=== PATIENT | female | born 1955 | race Caucasian/White ===

== ENCOUNTER 2016-04-27 07:57 | Emergency (ER) | payer OTHER ==
[2016-04-27 08:04] VITALS: TEMP 98.4; BMI 24.4
[2016-04-27] MEDS ORDERED: KETOROLAC TROMETHAMINE 30 MG/1 ML VIAL IVPUSH ONE (08:58)
[2016-04-27] MEDS ORDERED: ONDANSETRON 4 MG/2 ML VIAL IVPB ONE (08:58)
[2016-04-27] MEDS ORDERED: ONDANSETRON 4 MG/2 ML VIAL ONE (09:40)
[2016-04-27] MEDS ORDERED: KETOROLAC TROMETHAMINE 30 MG/1 ML VIAL ONE (09:40)
--- NOTE | 2016-04-27 09:47 | PDOC ---
History of Present Illness - General Chief Complaint: Pain, Acute Stated Complaint: ABD PAIN Time Seen by Provider: 04/27/16 08:40 History Source: Patient Exam Limitations: No Limitations - History of Present Illness Travel History: No Initial Comments: 04/27/16 09:37 60-year-old female presents to the ED with complaints of lower abdominal pain associated with constipation for the past 8 days. Patient states at this point she is also complaining of nausea without fever but did vomit once this morning. Patient states has history of chronic constipation is under the care of Dr. Yanez also for GERD. Patient denies dysuria, abdominal distention, rash , radiation of pain to her upper quadrants, chest pain, shortness of breath, or back pain. Patient also states history of colitis and diverticulitis but denies colon surgery. Timing/Duration: reports: constant Quality: reports: moderate, cramping Abdominal Pain Onset Location: reports: RLQ, LLQ Pain Radiation: reports: no radiation Activities at Onset: reports: none Aggravating Factors: improves with: None Alleviating Factors: improves with: None Past History - Past Medical History Allergies/Adverse Reactions: Allergies Allergy/AdvReac Type Severity Reaction Status Date / Time No Known Allergies Allergy Verified 04/27/16 07:58 Home Medications: Ambulatory Orders Gabapentin [Neurontin] 800 mg PO QID 03/31/14 Zolpidem Tartrate [Ambien] 10 mg PO HS 03/31/14 Clonazepam [Klonopin -] 0.5 mg PO DAILY 06/18/15 Venlafaxine HCl ER [Effexor Xr -] 150 mg PO BID cap.er.24h 11/03/15 Methimazole [Tapazole -] 20 mg PO Q12H 03/10/16 Methadone HCl 10 mg PO BID #60 tablet MDD 2 04/07/16 Cardiac Disorders: No Diabetes: No GI Disorders: Yes (gastris, gastric ulcers, diverticulitis, COLITIS) HTN: No Liver Disease: No Psychiatric Problems: Yes (ANXIETY) Suicide Attempt (Hx): No Seizures: Yes (? once had seizure 2005 had blood clot in brain) Thyroid Disease: Yes (hyperthyroid -multinodular) - Surgical History Abdominal Surgery: Yes Neurologic Surgery: Yes (2005 brain surgery blood clot removed after head trauma - ) - Immunization History Immunization Up to Date: Yes - Psycho/Social/Smoking Cessation Hx Anxiety: Yes Suicidal Ideation: No Smoking History: Former smoker Have you smoked in the past 12 months: No Number of Cigarettes Smoked Daily: 4 If you are a former smoker, when did you quit?: "one month ago" Information on smoking cessation initiated: No 'Breaking Loose' booklet given: 05/09/15 Hx Alcohol Use: No Drug/Substance Use Hx: No Substance Use Type: None Hx Substance Use Treatment: No Patient Lives Alone: No Lives with/in: spouse/SO Abd/GI Specific PMHX - Complaint Specific PMHX Colitis: Yes Diverticulitis: Yes GERD: Yes Review of Systems - Review of Systems Able to Perform ROS?: Yes Constitutional: No: Symptoms Reported HEENTM: No: Symptoms Reported Respiratory: No: Symptoms reported Cardiac (ROS): No: Symptoms Reported ABD/GI: Yes: Constipated, Nausea, Vomiting, Abdominal cramping : No: Symptoms Reported Musculoskeletal: No: Symptoms Reported Integumentary: No: Symptoms Reported Neurological: No: Symptoms reported *Physical Exam - Vital Signs Last Vital Signs Temp Pulse Resp BP Pulse Ox 98.4 F 57 L 18 157/90 99 04/27/16 07:59 04/27/16 07:59 04/27/16 07:59 04/27/16 07:59 04/27/16 07:59 - Physical Exam General Appearance: Yes: Nourished, Appropriately Dressed. No: Apparent Distress HEENT: negative: Pale Conjunctivae Neck: positive: Supple Respiratory/Chest: positive: Lungs Clear, Normal Breath Sounds. negative: Respiratory Distress, Accessory Muscle Use Cardiovascular: positive: Regular Rhythm, Regular Rate. negative: Murmur Gastrointestinal/Abdominal: positive: Normal Bowel Sounds, Soft, Guarding (mild left lower quadrant), Tenderness (left lower quadrant and right lower quadrant tenderness). negative: Distended, Rebound ED Treatment Course - LABORATORY CBC & Chemistry Diagram: 04/27/16 09:43 04/27/16 09:43 - RADIOLOGY Radiology Studies Ordered: Category Date Time Status ABDOMEN & PELVIS CT W/O CONTR [CT] Stat CT Scan 04/27/16 08:58 Ordered Medical Decision Making - Medical Decision Making 04/27/16 09:51 Patient with history of colitis diverticulitis GERD and constipation presents with lower abdominal pain associated with nausea vomiting and constipation. Patient was tender in the left and right lower quadrant with mild guarding without rebound or decreased bowel sounds. No palpable mass. No visible hernia. Patient ordered for labs including fluids Zofran and CT with by mouth contrast only. Will consult GI Dr. Yanez as needed 04/27/16 11:43 Laboratory Tests 04/27/16 04/27/16 04/27/16 09:43 09:43 09:43 WBC 6.5 Hgb 11.6 Hct 33.9 Neutrophils % 82.2 Sodium 134 L Potassium 3.9 Chloride 102 Carbon Dioxide 25 D Anion Gap 7 L BUN 7 Creatinine 0.5 L Creat Clearance w eGFR > 60 Random Glucose 103 Lactic Acid Calcium 8.9 Total Bilirubin 0.8 D ALT 26 Lipase 92 Urine Protein 1+ H Urine Ketones Negative Urine Nitrite Negative Ur Leukocyte Esterase Negative Urine RBC 1 Urine WBC <1 Opiates Screen Methadone Screen 04/27/16 04/27/16 09:43 09:43 WBC Hgb Hct Neutrophils % Sodium Potassium Chloride Carbon Dioxide Anion Gap BUN Creatinine Creat Clearance w eGFR Random Glucose Lactic Acid 1.295 Calcium Total Bilirubin ALT Lipase Urine Protein Urine Ketones Urine Nitrite Ur Leukocyte Esterase Urine RBC Urine WBC Opiates Screen Positive Methadone Screen Positive 04/27/16 13:44 CT shows a few diverticula in the distal descending and proximal to sigmoid colon without evidence of acute diverticulitis. Normal appearing appendix. Question of gallbladder sludge versus artifact. No CT evidence of acute process in the abdomen or pelvis. Patient will be discharged home to follow-up with her PCP. *DC/Admit/Observation/Transfer Diagnosis at time of Disposition: Lower abdominal pain - Discharge Dispostion Disposition: HOME Condition at time of disposition: Good - Referrals Referrals: Jacob Madison MD [Primary Care Provider] - Floyd Riddle MD [Staff Physician] - - Patient Instructions Printed Discharge Instructions: DI for Abdominal Pain-Adult Additional Instructions: Drink plenty of fluids and avoid spicy greasy food today. Follow-up with your PCP and/or timber killer. Return to ED if symptoms worsen.
[2016-04-27 10:00] LABS: BASOPHIL 0.6 % (0-2.0); EOSINOPHIL 0.1 % (0-4.5); MCH 30.1 pg (25.7-33.7); MCHC 34.1 g/dl (32.0-36.0); MEAN CELL VOLUME 88.2 fl (80-96); MEAN PLT VOLUME 7.7 fl (7.5-11.1); NEUTROPHILS 82.2 % (42.8-82.8); PLATELET COUNT 269 K/MM3 (134-434); RDW 15.1 % (11.6-15.6); WHITE BLOOD COUNT 6.5 K/mm3 (4.0-10.0)
[2016-04-27 10:01] LABS: URINE APPEARANCE CLEAR; URINE BILIRUBIN NEGATIVE (NEGATIVE); URINE BLOOD NEGATIVE (NEGATIVE); URINE COLOR YELLOW; URINE GLUCOSE (UA) NEGATIVE (NEGATIVE); URINE KETONE NEGATIVE (NEGATIVE); URINE LEUK ESTERASE NEGATIVE (NEGATIVE); URINE NITRITE NEGATIVE (NEGATIVE); URINE UROBILINOGEN NEGATIVE E.U./dl (0.2-1.0)
[2016-04-27 10:06] LABS: URINE PROTEIN 1+ (NEGATIVE)
[2016-04-27 10:08] LABS: URINE MUCUS FEW; URINE RBC 1 /hpf (0-3); URINE WBC <1 /hpf (3-5)
[2016-04-27 10:18] LABS: URINE MARIJUANA THC NEGATIVE ng/ml (CUTOFF=50)
[2016-04-27 10:35] LABS: ALBUMIN 3.6 g/dl (3.4-5.0); ANION GAP 7 (8-16); CALCIUM 8.9 mg/dL (8.5-10.1); CO2 25 mmol/L (21-32); CREATININE 0.5 mg/dL (0.55-1.02); GLUCOSE,RANDOM 103 mg/dL (74-106); SGOT/AST 20 U/L (15-37); SGPT/ALT 26 U/L (12-78)
[2016-04-27 10:37] LABS: ALK PHOS 98 U/L (45-117); BILIRUBIN,TOTAL 0.8 mg/dL (0.2-1.0); TOT PROT 7.6 g/dl (6.4-8.2)
[2016-04-27] MEDS ORDERED: morphine CARPU-JECT 2 MG/1 ML DISP.SYRIN IVPUSH ONE (11:54)
[2016-04-27] MEDS ORDERED: morphine CARPU-JECT 4 MG/1 ML DISP.SYRIN ONE (12:05)
[2016-04-27 14:13] VITALS: BP 153/94; PULSE 55
== END 2016-04-27 14:13 | disposition home or self-care (01) ==
LOC: JER 07:57
PROC: 3E033NZ Introduction of Analgesics, Hypnotics, Sedatives into Peripheral Vein, Percutaneous Approach (ICD-10-PCS; principal; 2016-04-27)
PROC: 3E0333Z Introduction of Anti-inflammatory into Peripheral Vein, Percutaneous Approach (ICD-10-PCS; 2016-04-27)
PROC: 3E033GC Introduction of Other Therapeutic Substance into Peripheral Vein, Percutaneous Approach (ICD-10-PCS; 2016-04-27)
DX: R10.30 Lower abdominal pain, unspecified (principal); E05.80 Other thyrotoxicosis without thyrotoxic crisis or storm; F41.9 Anxiety disorder, unspecified; Z87.19 Personal history of other diseases of the digestive system; Z86.69 Personal history of other diseases of the nervous system and sense organs
CPT/HCPCS: 36415; 74176-TC; 80053; 80307; 81003; 81015; 83605; 83690; 85025; 87086; 96374; 96375; 99282-25; Q9967

== ENCOUNTER 2018-01-24 17:21 | Emergency (ER) | payer OTHER ==
--- NOTE | 2018-01-24 18:21 | PDOC ---
History of Present Illness - General Chief Complaint: Palpitations Stated Complaint: EVALUATION Time Seen by Provider: 01/24/18 18:21 History Source: Patient Exam Limitations: No Limitations - History of Present Illness Initial Comments: 01/24/18 18:47 62 year old female sent to ED by heel top lift splitter for an event on her athletic monitor. Pt stated she did not want to be evaluated, she did not want to be treated and she wanted to go home. She states she had a cath last thursday, which was normal and she did not receive any stenting. She denies current chest pain, palpitations, shortness of breath, abdominal pain, syncope. She refused to answer any further questions. Past History - Past Medical History Allergies/Adverse Reactions: Allergies Allergy/AdvReac Type Severity Reaction Status Date / Time lorazepam [From Ativan] AdvReac Intermediate Vomiting Verified 11/06/17 08:05 Home Medications: Ambulatory Orders Zolpidem Tartrate [Ambien] 10 mg PO HS 03/31/14 clonazePAM [Klonopin -] 0.5 mg PO TID 06/18/15 Metoclopramide HCl [Reglan -] 10 mg PO BID PRN 03/20/17 Pantoprazole Sodium [Protonix -] 40 mg PO DAILY PRN 03/20/17 Bupropion HCl [Bupropion Xl] 150 mg PO DAILY 06/17/17 Levothyroxine [Synthroid -] 112 mcg PO DAILY 06/17/17 Risperidone [Risperdal] 2 mg PO DAILY 06/17/17 Gabapentin 800 mg PO QID #120 tablet 09/09/17 Hydrocodone/Acetaminophen [[place] 10-325 Tablet] 1 each PO BID PRN #60 tablet MDD 2 01/07/18 Methadone [Dolophine -] 10 mg PO Q12H #60 tablet MDD 2 01/07/18 Nystatin Cream [Mycostatin] 1 applic TP BID #1 tube 01/07/18 Cardiac Disorders: No Diabetes: No GI Disorders: Yes (gastris, gastric ulcers, diverticulitis, COLITIS) HTN: No Liver Disease: No Psychiatric Problems: Yes (ANXIETY) Seizures: Yes (? once had seizure 2005 had blood clot in brain) Thyroid Disease: Yes (hyperthyroid -multinodular) - Surgical History Abdominal Surgery: Yes Neurologic Surgery: Yes (2005 brain surgery blood clot removed after head trauma - ) - Immunization History Immunization Up to Date: Yes - Suicide/Smoking/Psychosocial Hx Smoking History: Current every day smoker (two cigarettes) Have you smoked in the past 12 months: No Number of Cigarettes Smoked Daily: 4 If you are a former smoker, when did you quit?: "one month ago" 'Breaking Loose' booklet given: 05/09/15 Hx Alcohol Use: No Drug/Substance Use Hx: No Substance Use Type: None Hx Substance Use Treatment: No Review of Systems - Review of Systems Able to Perform ROS?: No Comments:: 01/24/18 18:49 ROS limited due to patient not wanting to cooperate with medical evaluation. Cardiac: no chest pain, no palpitations, no syncope. Respiratory: no shortness of breath. *Physical Exam - Physical Exam Comments: 01/24/18 18:50 Examination limited due to patient not wanting to cooperate with medical evaluation. Constitutional: Well-nourished, Well-developed, appearing stated age. HEENT: head is normocephalic, atraumatic. Heart: aortic systolic murmur noted. Lungs: clear to auscultation bilaterally. no crackles, rhonchi or wheezing. no stridor. Abdomen: soft, nontender. increased bowel sounds. no rebound, guarding, masses. Extremities: No lower extremity edema. Neurological: CN 2-12 grossly intact. Moves all four extremities. Psych: awake, alert, oriented x3. Follows commands. Answers questions appropriately. ED Treatment Course - LABORATORY CBC & Chemistry Diagram: 01/24/18 18:25 01/24/18 18:25 Medical Decision Making - Medical Decision Making 01/24/18 18:52 62 year old female sent to ED by heel top lift splitter for an event on her athletic monitor. Pt refused medical care. She stated she does not think there was a real event on her monitor, that she must have hit the monitor a certain way and made it say something abnormal happened. She was concerned that her monitor was going to run out of battery. I explained to her that she could be monitored here at the Emergency Department. She stated she did not want to stay because she felt fine at the moment. I discussed with the patient at lengths the risk of leaving against medical advice, including , abnormal heart rhythms, heart attack, significant harm , stroke, and life altering consequences. She was alert and oriented x3 and stated she understood the risk and wanted to go home. I asked the patient to wait for an attending to evaluate her before she left, which she refused. She was attempting to leave her room and the Emergency Department. I removed her IV from her arm and she signed the AMA paperwork. She refused to wait for attending medical evaluation. I discussed at length with her that if anything were to happen, including chest pain, palpitations, lightheadedness, or any other symptoms, no matter how minor , that she should return to the Emergency Department immediately. She stated she understood and would return if any new symptoms arose. EKG performed at 1733 - rate 73, regular rhythm, normal axis, 1 PVC, nonspecific ST changes. *DC/Admit/Observation/Transfer Diagnosis at time of Disposition: Palpitations - Discharge Dispostion Disposition: AGAINST MEDICAL ADVICE Condition at time of disposition: Unchanged/Unknown - Referrals - Patient Instructions - Post Discharge Activity
[2018-01-24 18:38] LABS: BASO % 0.8 % (0-2.0); EOS % 1.4 % (0-4.5); HEMATOCRIT 35.5 % (32.4-45.2); HEMOGLOBIN 11.8 GM/dL (10.7-15.3); LYMPH % 32.2 % (8-40); MCH 29.5 pg (25.7-33.7); MCHC 33.4 g/dl (32.0-36.0); MEAN CELL VOLUME 88.4 fl (80-96); MONO % 8.3 % (3.8-10.2); NEUT % 57.3 % (42.8-82.8); PLATELET COUNT 230 K/MM3 (134-434); RBC 4.01 M/mm3 (3.60-5.2); RDW 14.2 % (11.6-15.6); WHITE BLOOD COUNT 3.7 K/mm3 (4.0-10.0)
--- NOTE | 2018-01-24 18:46 | PDOC ---
Attending Attestation - Resident Resident Name: Nathaly Villafuerte - ED Attending Attestation I have performed the following: I have examined & evaluated the patient, The case was reviewed & discussed with the resident, I agree w/resident's findings & plan, Exceptions are as noted - HPI HPI: 01/24/18 18:46 Pt left prior to my evaluation - Physicial Exam PE: 01/24/18 18:46 Pt left prior to my evaluation - Medical Decision Making 01/24/18 18:46 pt left prior to my evaluation. I did not perform a history of physical exam on this patient.
[2018-01-24 18:51] LABS: INR 1.06 (0.83-1.09); PROTHROMBIN TIME (PATIENT) 12.5 SEC (9.7-13.0)
[2018-01-24 18:54] LABS: ACTIVATED PTT 29.2 SECONDS (25.2-36.5)
[2018-01-24 19:11] LABS: ALBUMIN 3.5 g/dl (3.4-5.0); ALK PHOS 72 U/L (45-117); ANION GAP 5 MMOL/L (8-16); BILIRUBIN,TOTAL 0.4 mg/dL (0.2-1); BLOOD UREA NITROGEN 8 mg/dL (7-18); CALCIUM 8.8 mg/dL (8.5-10.1); CHLORIDE 106 mmol/L (98-107); CO2 30 mmol/L (21-32); CREATININE 0.5 mg/dL (0.55-1.3); GLUCOSE,RANDOM 91 mg/dL (74-106); POTASSIUM 3.9 mmol/L (3.5-5.1); SGOT/AST 22 U/L (15-37); SGPT/ALT 21 U/L (13-61); SODIUM 141 mmol/L (136-145); TOT PROT 7.2 g/dl (6.4-8.2)
--- NOTE | 2018-01-25 15:36 | EKG ---
Test Reason : Blood Pressure : / mmHG Vent. Rate : 073 BPM Atrial Rate : 073 BPM P-R Int : 168 ms QRS Dur : 084 ms QT Int : 418 ms P-R-T Axes : 038 003 003 degrees QTc Int : 460 ms SINUS RHYTHM WITH OCCASIONAL PREMATURE VENTRICULAR COMPLEXES VOLTAGE CRITERIA FOR LEFT VENTRICULAR HYPERTROPHY ABNORMAL ECG WHEN COMPARED WITH ECG OF 04-NOV-2016 08:26, PREMATURE VENTRICULAR COMPLEXES ARE NOW PRESENT Confirmed by JC BA, ACOSTA ([id number]) on 01/25/2018 3:36:12 PM Referred By: Confirmed By:ACOSTA GREENE MD
== END 2018-01-24 18:25 | disposition left against medical advice (07) ==
LOC: JER 17:21
DX: R00.2 Palpitations (principal); E05.90 Thyrotoxicosis, unspecified without thyrotoxic crisis or storm; Z87.19 Personal history of other diseases of the digestive system; F17.210 Nicotine dependence, cigarettes, uncomplicated; Z86.69 Personal history of other diseases of the nervous system and sense organs
CPT/HCPCS: 36415; 80053; 82550; 84443; 84484; 85025; 85610; 85730; 93005; 93010; 99281-25

== ENCOUNTER 2018-06-20 15:10 | Emergency (ER) | payer OTHER ==
[2018-06-20 15:15] VITALS: BP 144/87; PULSE 73; TEMP 98.6; BMI 25.7
[2018-06-20] MEDS ORDERED: PANTOPRAZOLE SODIUM 40 MG VIAL IVPUSH ONE (16:25)
[2018-06-20] MEDS ORDERED: MAG HYDROX/AL HYDROX/SIMETH 30 ML UNIT-DOSE CUP PO ONE (16:25)
[2018-06-20] MEDS ORDERED: FAMOTIDINE 20 MG/50 ML IVPB 20 MG/50 ML MG IVPB ONE ×2 (16:25→16:36)
--- NOTE | 2018-06-20 16:35 | PDOC ---
History of Present Illness - General Chief Complaint: Pain Stated Complaint: ABD PAIN Time Seen by Provider: 06/20/18 15:55 - History of Present Illness Initial Comments: 62 year old female with PMH of gastritis, colitis, chronic insomnia, and chronic pain (on methadone) presenting with abdominal pain for the past month. She previously saw Dr. Riddle who did not seem to find any anatomical or medical pathology at the time. She was unsatisfied with Dr. Riddle so she saw a new doctor at [facility] who performed an endoscopy and colonoscopy which were clean for any lesions. She has history of visits for similar pain and was found to be severely constipated. She does not take any laxatives at home. She states she is here today because she has decreased PO because of her abdominal pain which is worse after eating. She point to the pain as sharp and crampy in the left lower quadrant. Admits to liquid mucousy stools. Denies nausea, vomiting, fevers, chills, chest pain, bleeding from any orifice or other symptoms,. She is currently only able to eat a few crackers and toast at meals and drink tea a few times per day. 06/20/18 16:26 Past History - Past Medical History Allergies/Adverse Reactions: Allergies Allergy/AdvReac Type Severity Reaction Status Date / Time lorazepam [From Ativan] AdvReac Intermediate Vomiting Verified 06/20/18 15:15 Home Medications: Ambulatory Orders Zolpidem Tartrate [Ambien] 10 mg PO HS 03/31/14 Metoclopramide HCl [Reglan -] 10 mg PO BID PRN 03/20/17 Pantoprazole Sodium [Protonix -] 40 mg PO DAILY PRN 03/20/17 Bupropion HCl [Bupropion Xl] 150 mg PO DAILY 06/17/17 Levothyroxine [Synthroid -] 112 mcg PO DAILY 06/17/17 Risperidone [Risperdal] 2 mg PO DAILY 06/17/17 Nystatin Cream [Mycostatin] 1 applic TP BID #1 tube 01/07/18 Diclofenac Sodium [Voltaren] 2 gm TP TID PRN #3 tube 02/05/18 Gabapentin 800 mg PO QID #120 tablet 02/05/18 Metoprolol Tartrate [Lopressor -] 50 mg PO BID 02/05/18 Clonazepam [Klonopin] 1 mg PO TID PRN 04/05/18 Hydrocodone/Acetaminophen [[place] 10-325 Tablet] 1 each PO BID #60 tablet MDD 2 06/03/18 Methadone [Dolophine -] 10 mg PO Q12H #60 tablet MDD 2 06/03/18 Mag Hydrox/Al Hydrox/Simeth [Mylanta Suspension -] 30 ml PO Q6H PRN #1 bottle Sennosides [Senna] 8.8 mg PO DAILY #1 bottle 06/20/18 Asthma: No Cardiac Disorders: No CVA: No COPD: No CHF: No Diabetes: No GI Disorders: Yes (gastris, gastric ulcers, diverticulitis, COLITIS) HTN: No Hypercholesterolemia: No Liver Disease: No Psychiatric Problems: Yes (ANXIETY) Seizures: Yes (? once had seizure 2005 had blood clot in brain) Thyroid Disease: Yes (hyperthyroid -multinodular) - Surgical History Abdominal Surgery: Yes Neurologic Surgery: Yes (2005 brain surgery blood clot removed after head trauma - ) - Immunization History Immunization Up to Date: Yes - Suicide/Smoking/Psychosocial Hx Smoking History: Never smoked Have you smoked in the past 12 months: No Number of Cigarettes Smoked Daily: 4 If you are a former smoker, when did you quit?: "one month ago" 'Breaking Loose' booklet given: 05/09/15 Hx Alcohol Use: No Drug/Substance Use Hx: No Substance Use Type: None Hx Substance Use Treatment: No Review of Systems - Review of Systems Constitutional: Yes: Loss of Appetite. No: Chills, Diaphoresis, Fever, Malaise , Night Sweats HEENTM: No: Eye Pain, Blurred Vision, Tearing Respiratory: No: Cough, Orthopnea, Shortness of Breath, SOB with Exertion Cardiac (ROS): No: Chest Pain, Edema, Irregular Heart Rate, Chest Tightness ABD/GI: Yes: Poor Appetite, Abdominal cramping. No: Diarrhea, Nausea, Vomiting : No: Burning, Dysuria, Discharge, Frequency Musculoskeletal: No: Back Pain, Gout, Joint Pain, Joint Swelling Integumentary: No: Bruising, Change in Color, Dryness, Erythema, Flushing, Pruritus, Rash Neurological: No: Headache, Numbness, Paresthesia Psychiatric: Yes: Anxiety, Sleep Pattern Change Hematologic/Lymphatic: No: Anemia, Blood Clots, Easy Bleeding *Physical Exam - Vital Signs Last Vital Signs Temp Pulse Resp BP Pulse Ox 98.6 F 73 18 144/87 99 06/20/18 15:12 06/20/18 15:12 06/20/18 15:12 06/20/18 15:12 06/20/18 15:12 - Physical Exam General Appearance: Yes: Nourished, Appropriately Dressed, Apparent Distress, Mild Distress (mildly anxious) HEENT: positive: EOMI, ERIKA, Normal ENT Inspection Neck: positive: Trachea midline, Normal Thyroid, Supple. negative: Tender, Rigid Respiratory/Chest: positive: Lungs Clear, Normal Breath Sounds. negative: Chest Tender, Respiratory Distress, Accessory Muscle Use Cardiovascular: positive: Regular Rhythm, Regular Rate Gastrointestinal/Abdominal: positive: Normal Bowel Sounds, Tender (left lower and left midabdominal mild ttp), Flat, Soft Lymphatic: negative: Adenopathy, Tenderness Musculoskeletal: positive: Normal Inspection. negative: Decreased Range of Motion Extremity: positive: Normal Capillary Refill, Normal Inspection, Normal Range of Motion. negative: Tender Integumentary: positive: Normal Color, Dry, Warm Neurologic: positive: technology administrator II-XII NML intact, Fully Oriented, Alert, Normal Mood/ Affect Moderate Sedation - Procedure Monitoring Vital Signs: Procedure Monitoring Vital Signs Temperature 98.6 F 06/20/18 15:12 Pulse Rate 73 06/20/18 15:12 Respiratory Rate 18 06/20/18 15:12 Blood Pressure 144/87 06/20/18 15:12 O2 Sat by Pulse Oximetry (%) 99 06/20/18 15:12 ED Treatment Course - LABORATORY CBC & Chemistry Diagram: 06/20/18 16:15 06/20/18 16:15 Medical Decision Making - Medical Decision Making 62 year old female with history of gastritis and chronic opioid use presenting with abdominal pain and watery infrequent bowel movements. Labs are all WNL and abdominal film showing mild constipation. Her symptoms improved mostly with the Maalox. Discharged with Maalox, senna and GI/ PCP follow up. 06/20/18 17:29 *DC/Admit/Observation/Transfer Diagnosis at time of Disposition: Abdominal pain Qualifiers: Abdominal location: generalized Qualified Code(s): R10.84 - Generalized abdominal pain - Discharge Dispostion Disposition: HOME Condition at time of disposition: Improved Decision to Admit order: No - Prescriptions Prescriptions: Mag Hydrox/Al Hydrox/Simeth [Mylanta Suspension -] 30 ml PO Q6H PRN #1 bottle PRN Reason: stomach pain Sennosides [Senna] 8.8 mg PO DAILY #1 bottle - Referrals Referrals: [facility] [place] [Provider Group] - Patient Instructions Printed Discharge Instructions: DI for Abdominal Pain-Adult Additional Instructions: Please use your Maalox for your abdominal pain and your senna medication daily for constipation. Please follow up with your GI doctor next week, Please follow up with your primary care doctor as soon as possible. Please return to the ED if you have new or worsening symptoms. - Post Discharge Activity
[2018-06-20] MEDS ORDERED: MAG HYDROX/AL HYDROX/SIMETH 30 ML UNIT-DOSE CUP ONE (16:36)
[2018-06-20] MEDS ORDERED: PANTOPRAZOLE SODIUM 40 MG VIAL ONE (16:36)
[2018-06-20 16:42] LABS: EOS % 0.2 % (0-4.5); HEMATOCRIT 34.7 % (32.4-45.2); HEMOGLOBIN 12.1 GM/dL (10.7-15.3); LYMPH % 21.2 % (8-40); MCH 30.9 pg (25.7-33.7); MCHC 34.7 g/dl (32.0-36.0); MEAN CELL VOLUME 89.1 fl (80-96); MEAN PLT VOLUME 7.7 fl (7.5-11.1); MONO % 4.9 % (3.8-10.2); NEUT % 72.7 % (42.8-82.8); PLATELET COUNT 235 K/MM3 (134-434)
[2018-06-20 16:56] LABS: ALBUMIN 3.7 g/dl (3.4-5.0); ALK PHOS 70 U/L (45-117); AMYLASE 78 U/L (25-115); ANION GAP 6 MMOL/L (8-16); BILIRUBIN,TOTAL 0.4 mg/dL (0.2-1); BLOOD UREA NITROGEN 5 mg/dL (7-18); CALCIUM 8.9 mg/dL (8.5-10.1); CHLORIDE 102 mmol/L (98-107); CO2 31 mmol/L (21-32); CREATININE 0.6 mg/dL (0.55-1.3); GLUCOSE,RANDOM 89 mg/dL (74-106); LIPASE 87 U/L (73-393); SGOT/AST 21 U/L (15-37); SGPT/ALT 18 U/L (13-61); SODIUM 140 mmol/L (136-145); TOT PROT 7.4 g/dl (6.4-8.2)
--- NOTE | 2018-06-20 18:00 | PDOC ---
Attending Attestation - Resident Resident Name: Anabell Torres - ED Attending Attestation I have performed the following: I have examined & evaluated the patient, The case was reviewed & discussed with the resident, I agree w/resident's findings & plan, Exceptions are as noted - HPI HPI: 06/20/18 17:52 62 yo female who states she has some abd discomfort,history of recent endoscopy and colonscopy that was read as normal no fevers,no chills,no vomiting, no bloody stools. She takes methadone daily and is supposed to take miralax but does not - Physicial Exam PE: 06/20/18 18:03 wnwd 62 yo female in no acute distress head ncat neck supple lungs cta b/l cvs [id number] abd no rebound no guarding ext no pitting edema skin warm and dry neuro axox3,ambulatory , moving all extremities psych appropriate - Medical Decision Making 06/20/18 18:00 KUB no sbo,no fecal impaction 06/20/18 18:05 labs unremarkable d/c home to follow up GI specialist
== END 2018-06-20 18:09 | disposition home or self-care (01) ==
LOC: JER 15:10
PROC: 3E033GC Introduction of Other Therapeutic Substance into Peripheral Vein, Percutaneous Approach (ICD-10-PCS; principal; 2018-06-20)
PROC: 3E033GC Introduction of Other Therapeutic Substance into Peripheral Vein, Percutaneous Approach (ICD-10-PCS; 2018-06-20)
DX: K59.00 Constipation, unspecified (principal); R10.84 Generalized abdominal pain; Z87.19 Personal history of other diseases of the digestive system; E05.90 Thyrotoxicosis, unspecified without thyrotoxic crisis or storm; E04.2 Nontoxic multinodular goiter; F41.9 Anxiety disorder, unspecified; Z86.79 Personal history of other diseases of the circulatory system
CPT/HCPCS: 36415; 74019-TC-FY; 80053; 82150; 83690; 85025; 96365; 96375; 99283-25

== ENCOUNTER 2018-08-15 13:19 | Emergency (ER) | payer OTHER ==
[2018-08-15 13:39] VITALS: BP 121/75; PULSE 69; TEMP 97.7; BMI 24.4
--- NOTE | 2018-08-15 14:32 | PDOC ---
History of Present Illness - General Chief Complaint: Pain Stated Complaint: FINGER INFECTION Time Seen by Provider: 08/15/18 13:34 History Source: Patient Exam Limitations: No Limitations Past History - Past Medical History Allergies/Adverse Reactions: Allergies Allergy/AdvReac Type Severity Reaction Status Date / Time lorazepam [From Ativan] AdvReac Intermediate Vomiting Verified 06/20/18 15:15 Home Medications: Ambulatory Orders Zolpidem Tartrate [Ambien] 10 mg PO HS 03/31/14 Metoclopramide HCl [Reglan -] 10 mg PO BID PRN 03/20/17 Pantoprazole Sodium [Protonix -] 40 mg PO DAILY PRN 03/20/17 Bupropion HCl [Bupropion Xl] 150 mg PO DAILY 06/17/17 Levothyroxine [Synthroid -] 112 mcg PO DAILY 06/17/17 Risperidone [Risperdal] 2 mg PO DAILY 06/17/17 Nystatin Cream [Mycostatin] 1 applic TP BID #1 tube 01/07/18 Metoprolol Tartrate [Lopressor -] 50 mg PO BID 02/05/18 Clonazepam [Klonopin] 1 mg PO TID PRN 04/05/18 Mag Hydrox/Al Hydrox/Simeth [Mylanta Suspension -] 30 ml PO Q6H PRN #1 bottle Sennosides [Senna] 8.6 mg PO DAILY #30 tablet 06/21/18 Diclofenac Sodium [Voltaren] 2 gm TP TID PRN #3 tube 06/30/18 Gabapentin 800 mg PO QID #120 tablet 06/30/18 Hydrocodone/Acetaminophen [[place] 10-325 Tablet] 1 each PO BID #60 tablet MDD 2 07/28/18 Methadone [Dolophine -] 10 mg PO Q12H #60 tablet MDD 2 07/28/18 Asthma: No Cardiac Disorders: Yes (? leaky valve) CVA: No COPD: No CHF: No Diabetes: No GI Disorders: Yes (gastris, gastric ulcers, diverticulitis, COLITIS) HTN: Yes (on meds) Hypercholesterolemia: No Liver Disease: No Psychiatric Problems: Yes (ANXIETY) Seizures: Yes (? once had seizure 2005 had blood clot in brain) Thyroid Disease: Yes (hyperthyroid -multinodular) - Surgical History Abdominal Surgery: Yes Neurologic Surgery: Yes (2005 brain surgery blood clot removed after head trauma - ) - Immunization History Immunization Up to Date: Yes - Suicide/Smoking/Psychosocial Hx Smoking History: Never smoked Have you smoked in the past 12 months: No Number of Cigarettes Smoked Daily: 4 If you are a former smoker, when did you quit?: "one month ago" 'Breaking Loose' booklet given: 05/09/15 Hx Alcohol Use: No Drug/Substance Use Hx: No Substance Use Type: None Hx Substance Use Treatment: No *Physical Exam - Vital Signs Last Vital Signs Temp Pulse Resp BP Pulse Ox 97.7 F 69 20 121/75 100 08/15/18 13:30 08/15/18 13:30 08/15/18 13:30 08/15/18 13:30 08/15/18 13:30 - Physical Exam General Appearance: No: Apparent Distress Respiratory/Chest: positive: Lungs Clear, Normal Breath Sounds. negative: Respiratory Distress Cardiovascular: positive: Regular Rhythm, Regular Rate, S1, S2. negative: Murmur Extremity: positive: Other (+paronychia of R index finger, no surrounding erythema, no felon noted) Neurologic: positive: Alert, Normal Mood/Affect Procedures - Incision and Drainage I&D Site: Right: Paronychia (Index finger) Betadine cleansed: Yes Anesthesia: 1% Lidocaine Blade Size: 11 Attempts: 1 Medical Decision Making - Medical Decision Making 62 y/o F hx of chronic pain (on methadone), anxiety, bipolar, hypothyroid, gastritis presents with R finger infection since 2 days ago. Denies fever. States she does bite her fingers often. R finger paronychia drained Site covered with bacitracin and gauze 08/15/18 14:15 *DC/Admit/Observation/Transfer Diagnosis at time of Disposition: Paronychia - Discharge Dispostion Disposition: HOME Condition at time of disposition: Stable Decision to Admit order: No - Referrals Referrals: Jacob Madison MD [Primary Care Provider] - 2 Days - Patient Instructions Printed Discharge Instructions: DI for Paronychia Additional Instructions: Thank you for choosing [facility]. It was a pleasure taking care of you. You may take Tylenol 650 mg or Motrin 600 mg every 6 hours by mouth as needed for mild to moderate pain. Take Motrin with food. It is important that you continue warm compresses/soaks 3-4 times/day You can also Bacitracin or Neosporin to finger three times a day. Return to the Emergency Department if your symptoms worsen or persist, you have fever, increased swelling/redness, streaking or other concerning symptoms. - Post Discharge Activity
== END 2018-08-15 14:38 | disposition home or self-care (01) ==
LOC: JERFT 13:19
PROC: 0J9J0ZZ Drainage of Right Hand Subcutaneous Tissue and Fascia, Open Approach (ICD-10-PCS; principal; 2018-08-15)
DX: L03.011 Cellulitis of right finger (principal); I10 Essential (primary) hypertension; E05.90 Thyrotoxicosis, unspecified without thyrotoxic crisis or storm; F41.9 Anxiety disorder, unspecified; F31.9 Bipolar disorder, unspecified; F11.20 Opioid dependence, uncomplicated
CPT/HCPCS: 10060; 99281-25

== ENCOUNTER 2019-11-05 15:16 | Emergency (ER) | payer OTHER ==
--- NOTE | 2019-11-05 15:20 | PDOC ---
Rapid Medical Evaluation Time Seen by Provider: 11/05/19 15:18 Medical Evaluation: Allergies Allergy/AdvReac Type Severity Reaction Status Date / Time lorazepam [From Ativan] AdvReac Intermediate Vomiting Verified 09/20/19 09:44 11/05/19 15:19 I have performed a brief in-person evaluation of this patient. The patient presents with a chief complaint of: L lower abd pain x 3 days. No change in BM, dysuria, n/v/f/c. Endorses h/o gastris/GERD, takes meds only as needed, chronic back/knee pain, bipolar, schizoaffective d/o and anxiety, f/u at [facility] Pertinent physical exam findings:stable and well jazmyn I have ordered the following:labs/ua The patient will proceed to the ED for further evaluation. Discharge Disposition - Diagnosis Abdominal pain Qualifiers: Abdominal location: lower abdomen, unspecified Qualified Code(s): R10.30 - Lower abdominal pain, unspecified - Referrals - Patient Instructions - Post Discharge Activity
[2019-11-05 15:22] VITALS: BMI 26.6
[2019-11-05] MEDS ORDERED: KETOROLAC TROMETHAMINE 30 MG/1 ML VIAL IVPUSH ONE (16:01)
--- NOTE | 2019-11-05 16:05 | PDOC ---
History of Present Illness - General Chief Complaint: Pain, Acute Stated Complaint: ABD PAIN Time Seen by Provider: 11/05/19 15:18 History Source: Patient Exam Limitations: No Limitations - History of Present Illness Initial Comments: 11/05/19 16:02 64-year-old female past medical history gastritis GERD hypertension hyperlipidemia diverticulitis presenting to the ED with left lower quadrant pain for 3 days with out bloody bowel movements. Patient states that the pain is crampy intermittent nonradiating and located mostly in her left lower quadrant. Pain is not associated with food. Patient states this pain is similar to her last episode of diverticulitis. Pt otherwise denies: fevers, chills, syncope, lightheadedness, dizziness, headaches, neck pain, chest pain, shortness of breath, palpitations, back pain, nausea, vomiting, diarrhea, constipation. Past History - Medical History Allergies/Adverse Reactions: Allergies Allergy/AdvReac Type Severity Reaction Status Date / Time lorazepam [From Ativan] AdvReac Intermediate Vomiting Verified 11/05/19 15:19 Home Medications: Ambulatory Orders Nystatin Cream [Mycostatin] 1 applic TP BID #1 tube 01/07/18 Metoprolol Tartrate [Lopressor -] 50 mg PO BID 02/05/18 Clonazepam [Klonopin] 1 mg PO TID PRN 04/05/18 Mag Hydrox/Al Hydrox/Simeth [Mylanta Suspension -] 30 ml PO Q6H PRN #1 bottle 06/20/18 Zolpidem Tartrate [Ambien Cr] 12.5 mg PO DAILY 01/25/19 [place] Carbonate [Eskalith -] 450 mg PO DAILY 05/23/19 Quetiapine Fumarate [Seroquel -] 50 mg PO HS 05/23/19 Budesonide/Formeterol Fumarate [SYMBICORT 80/4.5mcg -] 1 inh PO DAILY 06/20/19 Cholecalciferol (Vitamin D3) [Vitamin D3] 2,000 unit PO DAILY #1 liquid 06/20/19 Levothyroxine [Synthroid -] 112 mcg PO DAILY 06/20/19 Diclofenac Sodium [Voltaren] 2 gm TP TID PRN #3 tube 08/19/19 Gabapentin [Neurontin] 600 mg PO TID #90 tablet 10/13/19 Hydrocodone/Acetaminophen [[place] 10-325 Tablet] 1 each PO BID #60 tablet MDD 2 10/13/19 Methadone [Dolophine -] 10 mg PO Q12H #60 tablet MDD 2 10/13/19 Ergocalciferol (Vitamin D2) [Vitamin D2] 50,000 unit PO Q7D #4 cap 10/19/19 Asthma: No Cancer: No Cardiac Disorders: Yes (? leaky valve) CVA: No COPD: No CHF: No Diabetes: No GI Disorders: Yes (gastris, gastric ulcers, diverticulitis, COLITIS,IBS) Disorders: Yes (cystitis ) HTN: Yes (on meds) Hypercholesterolemia: No Liver Disease: No Psychiatric Problems: Yes (ANXIETY) Seizures: Yes (? once had seizure 2005 had blood clot in brain) Thyroid Disease: Yes (hyperthyroid -multinodular) - Surgical History Abdominal Surgery: Yes Neurologic Surgery: Yes (2005 brain surgery blood clot removed after head trauma - ) - Immunization History Immunization Up to Date: Yes - Psycho-Social/Smoking History Smoking History: Unknown if ever smoked Have you smoked in the past 12 months: No Number of Cigarettes Smoked Daily: 4 If you are a former smoker, when did you quit?: "one month ago" 'Breaking Loose' booklet given: 05/09/15 - Substance Abuse Hx (Audit-C & DAST Scrn) How often the patient has a drink containing alcohol: Never Score: In Men: 4 or > Positive; In Women: 3 or > Positive: 0 Screen Result (Pos requires Nsg. Audit-10AR): Negative In the last yr the pt used illegal drug/Rx for NonMed reason: No Score: Yes response is considered Positive: 0 Screen Result (Positive result requires Nsg. DAST-10): Negative Review of Systems - Review of Systems Constitutional: No: Chills, Fever HEENTM: No: Eye Pain Respiratory: No: Cough, Shortness of Breath Cardiac (ROS): No: Chest Pain ABD/GI: Yes: Abdominal cramping. No: Abdominal Distended, Blood Streaked Bowels, Constipated, Diarrhea, Nausea, Vomiting : No: Burning, Dysuria, Discharge Integumentary: No: Bruising Neurological: No: Headache, Numbness, Paresthesia *Physical Exam - Vital Signs Last Vital Signs Temp Pulse Resp BP Pulse Ox 98.9 F 69 18 125/62 97 11/05/19 15:19 11/05/19 15:19 11/05/19 15:19 11/05/19 15:19 11/05/19 15:19 - Physical Exam 11/05/19 20:12 Gen: AAOx 3, no acute distress, comfortable, no signs of respiratory distress HENT: atraumatic, normocephalic with no laceration or contusion. Nasal mucosa without erythema. Oropharynx without erythema or exudates. Mucous membranes moist. EYES: PERRL, EOM intact, conjunctiva pink NECK: supple; trachea midline; no JVD, no lymphadenopathy, or thyromegaly CV: RRR no murmurs, gallops, or rubs. CHEST: CTA b/l no wheezing, rales or rhonchi ABD: +BS/ND. mildly TTP in LLQ without rebound or guarding; rest of abdomen soft, no rebound, no guarding EXTREMITY: no cyanosis or erythema. 2+ dorsalis pedis, posterior tibial, and radial pulse. No pedal edema; no calf swelling or tenderness SKIN: no rash, warm and dry, no diaphoresis HEME: no purpura or ecchymosis NEURO: normal speech, CN II-XII intact, sensation intact, normal gait, no cerebellar deficits MS: 5/5 strength in all extremities, FROM intact in all extremities. ED Treatment Course - LABORATORY CBC & Chemistry Diagram: 11/05/19 16:21 11/05/19 16:21 - RADIOLOGY Radiology Studies Ordered: Category Date Time Status ABDOMEN & PELVIS CT WITH CONTR [CT] Stat CT Scan 11/05/19 16:02 Ordered Medical Decision Making - Medical Decision Making 11/05/19 16:04 [age]-year-old female multiple comorbidities presenting with left lower quadrant pain Vital signs stable Most likely diverticulitis versus constipation versus gas Will obtain labs EKG UA Will obtain CT abdomen pelvis with IV contrast to assess for acute abdominal pathology Will reassess based on results. Labs, EKG and UA WNL CT shows no evidence of acute pathology as per imaging information clerk brokerage read. Incidental findings explained to patient as well as need to follow up. Pt reports improvement in symptoms with meds Pt appears well and is safe and stable for discharge with close follow up with PCP and GI. Pt given strict return precautions. Supportive care instructions explained and given to pt. Reasons to return emergently to ER explained and given. Importance of follow up with PMD and other specialists as indicated stressed to pt. Pt verbalized understanding of instructions. Pt to follow up with PMD in 2 days. Discharge - Discharge Information Problems reviewed: Yes Clinical Impression/Diagnosis: Abdominal pain Qualifiers: Abdominal location: lower abdomen, unspecified Qualified Code(s): R10.30 - Lower abdominal pain, unspecified Condition: Stable Disposition: HOME - Follow up/Referral Referrals: Jj Helm MD [Primary Care Provider] - - Patient Discharge Instructions Patient Printed Discharge Instructions: DI for Abdominal Pain-Adult - Post Discharge Activity
[2019-11-05] MEDS ORDERED: KETOROLAC TROMETHAMINE 30 MG/1 ML VIAL ONE (16:08)
[2019-11-05 16:46] LABS: EOS % 0.3 % (0-4.5); HEMATOCRIT 37.5 % (32.4-45.2); HEMOGLOBIN 12.4 GM/dL (10.7-15.3); LYMPH % 21.4 % (8-40); MCH 29.2 pg (25.7-33.7); MEAN CELL VOLUME 88.4 fl (80-96); MONO % 6.1 % (3.8-10.2); NEUT % 71.2 % (42.8-82.8); PLATELET COUNT 238 K/MM3 (134-434); RBC 4.24 M/mm3 (3.60-5.2); RDW 14.8 % (11.6-15.6); WHITE BLOOD COUNT 4.5 K/mm3 (4.0-10.0)
[2019-11-05] MEDS ORDERED: PANTOPRAZOLE SODIUM 40 MG VIAL IVPUSH ONE (16:47)
[2019-11-05] MEDS ORDERED: MAG HYDROX/AL HYDROX/SIMETH 30 ML UNIT-DOSE CUP PO ONE (16:47)
[2019-11-05 17:04] LABS: POTASSIUM 4.7 mmol/L (3.5-5.1)
[2019-11-05] MEDS ORDERED: MAG HYDROX/AL HYDROX/SIMETH 30 ML UNIT-DOSE CUP ONE (17:04)
[2019-11-05] MEDS ORDERED: PANTOPRAZOLE SODIUM 40 MG VIAL ONE (17:04)
[2019-11-05 17:14] LABS: ALBUMIN 3.6 g/dl (3.4-5.0); BILIRUBIN,TOTAL 0.7 mg/dL (0.2-1); BLOOD UREA NITROGEN 11.2 mg/dL (7-18); CALCIUM 9.2 mg/dL (8.5-10.1); CREATININE 0.6 mg/dL (0.55-1.3)
[2019-11-05 17:22] LABS: PH,URINE 5.5 (5.0-8.0); URINE APPEARANCE CLEAR; URINE BILIRUBIN NEGATIVE (NEGATIVE); URINE COLOR YELLOW; URINE GLUCOSE (UA) NEGATIVE (NEGATIVE); URINE KETONE NEGATIVE (NEGATIVE); URINE LEUK ESTERASE NEGATIVE (NEGATIVE); URINE NITRITE NEGATIVE (NEGATIVE); URINE PROTEIN NEGATIVE (NEGATIVE); URINE UROBILINOGEN 0.2 mg/dL (0.2-1.0)
[2019-11-05 20:23] VITALS: BP 110/67; PULSE 89; TEMP 98.5
--- NOTE | 2019-11-07 09:24 | EKG ---
Test Reason : Blood Pressure : / mmHG Vent. Rate : 052 BPM Atrial Rate : 052 BPM P-R Int : 188 ms QRS Dur : 082 ms QT Int : 446 ms P-R-T Axes : 022 014 010 degrees QTc Int : 414 ms SINUS BRADYCARDIA VOLTAGE CRITERIA FOR LEFT VENTRICULAR HYPERTROPHY ABNORMAL ECG WHEN COMPARED WITH ECG OF 24-JAN-2018 17:33, PREMATURE VENTRICULAR COMPLEXES ARE NO LONGER PRESENT NONSPECIFIC T WAVE ABNORMALITY NOW EVIDENT IN LATERAL LEADS Confirmed by Leonard Martinez ([id number]) on 11/07/2019 9:24:03 AM Referred By: Confirmed By:Leonard Martinez
== END 2019-11-05 20:24 | disposition home or self-care (01) ==
LOC: JER 15:16
PROC: 3E033NZ Introduction of Analgesics, Hypnotics, Sedatives into Peripheral Vein, Percutaneous Approach (ICD-10-PCS; principal; 2019-11-05)
PROC: 3E033GC Introduction of Other Therapeutic Substance into Peripheral Vein, Percutaneous Approach (ICD-10-PCS; 2019-11-05)
DX: R10.30 Lower abdominal pain, unspecified (principal)
CPT/HCPCS: 36415; 74177-TC; 80053; 81003; 83690; 85025; 93005; 93010; 99285-25; Q9967

== ENCOUNTER 2021-02-15 04:47 | Day surgery (SDC) | payer OTHER ==
[2021-02-14 10:34] VITALS: BMI 32.8
[~2021-02-15 04:47] MED LIST: BUPIVACAINE HCL/PF 0.5% (5MG/ML) 10 ML VIAL IJ ONE
[2021-02-15] MEDS ORDERED: ACETAMINOPHEN INJECTION 100 ML IVPB ONE (07:16)
[2021-02-15] MEDS ORDERED: BUPIVACAINE HCL/PF 0.5% (5MG/ML) 10 ML VIAL ONE ×2 (07:19→09:59)
[2021-02-15] MEDS ORDERED: BUPIVACAINE LIPOSOME/PF (EXPAREL) 266 MG/20 ML VIAL ONE (07:19)
[2021-02-15] MEDS ORDERED: MIDAZOLAM HCL 2 MG/2 ML SINGLE DOSE VIAL ONE ×3 (07:21→07:33)
[2021-02-15] MEDS ORDERED: SUCCINYLCHOLINE CHLORIDE 200 MG/10 ML SYRINGE ONE (07:31)
[2021-02-15] MEDS ORDERED: ePHEDrine SULFATE 50 MG/1 ML AMPULE ONE (07:32)
[2021-02-15] MEDS ORDERED: fentaNYL CITRATE 250 MCG/5 ML VIAL ONE (07:33)
[2021-02-15] MEDS ORDERED: ROCURONIUM BROMIDE 50 MG/5 ML SYRINGE ONE (07:33)
[2021-02-15] MEDS ORDERED: KETAMINE HCL 200 MG/20 ML VIAL ONE (07:33)
[2021-02-15] MEDS ORDERED: PROPOFOL 20 ML ONE ×2 (07:35)
[2021-02-15] MEDS ORDERED: ceFAZolin SODIUM 1 GM VIAL IVPB ONE (08:55)
[2021-02-15] MEDS ORDERED: GLYCOPYRROLATE 0.2 MG/1 ML VIAL ONE (09:05)
[2021-02-15] MEDS ORDERED: NEOSTIGMINE METHYLSULFATE 0.5 MG/ML - 10 ML MDV ONE (09:06)
[2021-02-15] MEDS ORDERED: DESFLURANE GAS 240 ML BOTTLE IH ONE (09:11)
[2021-02-15] MEDS ORDERED: oxyCODONE HCL 5 MG TABLET PO PRN (11:34)
[2021-02-15] MEDS ORDERED: ONDANSETRON 4 MG/2 ML VIAL IVPUSH PRN (11:34)
[2021-02-15] MEDS ORDERED: LACTATED RINGERS SOLUTION 1,000 ML IV SCH (11:45)
[2021-02-15 13:05] VITALS: TEMP 97.3
[2021-02-15 13:19] VITALS: PULSE 60
[2021-02-15 13:50] VITALS: BP 120/60
== END 2021-02-15 13:52 | disposition home or self-care (01) ==
LOC: JASU-SURG 04:47
PROVIDERS: ATTEND Surgery
PROC: 8E0W4CZ Robotic Assisted Procedure of Trunk Region, Percutaneous Endoscopic Approach (ICD-10-PCS; 2021-02-15)
PROC: 0WUF4JZ Supplement Abdominal Wall with Synthetic Substitute, Percutaneous Endoscopic Approach (ICD-10-PCS; principal; 2021-02-15 08:00)
DX: K42.0 Umbilical hernia with obstruction, without gangrene (principal)
CPT/HCPCS: 49653; S2900; 88302-TC; 94760; J0131

== ENCOUNTER 2021-02-19 23:17 | Emergency (ER) | payer OTHER ==
[2021-02-19 23:25] VITALS: BP 157/91; PULSE 68; TEMP 97.5; BMI 32.8
[2021-02-19] MEDS ORDERED: morphine CARPU-JECT 4 MG/1 ML DISP.SYRIN IVPUSH ONE (23:55)
[2021-02-20] MEDS ORDERED: morphine SULFATE 4 MG/ML VIAL ONE (00:07)
[2021-02-20 00:44] LABS: BASO % 0.5 % (0-2.0); HEMATOCRIT 33.5 % (32.4-45.2); HEMOGLOBIN 11.4 GM/dL (10.7-15.3); LYMPH % 18.4 % (8-40); MCH 29.4 pg (25.7-33.7); MEAN CELL VOLUME 86.3 fl (80-96); MEAN PLT VOLUME 7.4 fl (7.5-11.1); MONO % 7.9 % (3.8-10.2); NEUT % 69.2 % (42.8-82.8); PLATELET COUNT 287 10^3/uL (134-434); RBC 3.88 M/mm3 (3.60-5.2); RDW 14.2 % (11.6-15.6); WHITE BLOOD COUNT 5.4 K/mm3 (4.0-10.0)
[2021-02-20 01:00] LABS: CALCIUM 8.7 mg/dL (8.5-10.1)
[2021-02-20 01:01] LABS: ALBUMIN 2.8 g/dl (3.4-5.0); BLOOD UREA NITROGEN 6.4 mg/dL (7-18)
[2021-02-20 01:04] LABS: CREATININE 0.6 mg/dL (0.55-1.3)
[2021-02-20 01:06] LABS: BILIRUBIN,TOTAL 0.2 mg/dL (0.2-1); TOT PROT 6.8 g/dl (6.4-8.2)
== END 2021-02-20 02:03 | disposition home or self-care (01) ==
LOC: JER 23:17
PROC: 3E033NZ Introduction of Analgesics, Hypnotics, Sedatives into Peripheral Vein, Percutaneous Approach (ICD-10-PCS; principal; 2021-02-19)
DX: Z48.815 Encounter for surgical aftercare following surgery on the digestive system (principal)
CPT/HCPCS: 36415; 80053; 85025; 99284-25

== ENCOUNTER 2021-03-18 04:08 | Emergency (ER) | payer OTHER ==
[2021-03-18 04:47] VITALS: BMI 33.3
[2021-03-18] MEDS ORDERED: morphine CARPU-JECT 4 MG/1 ML DISP.SYRIN IVPUSH ONE (05:03)
[2021-03-18] MEDS ORDERED: morphine SULFATE 4 MG/ML VIAL ONE (05:16)
[2021-03-18] MEDS ORDERED: ACETAMINOPHEN 1000 MG/100 ML VIAL IVPB ONE (06:14)
[2021-03-18 06:26] LABS: EOS % 1.7 % (0-4.5); HEMATOCRIT 36.4 % (32.4-45.2); HEMOGLOBIN 12.2 GM/dL (10.7-15.3); LYMPH % 21.7 % (8-40); MCH 29.2 pg (25.7-33.7); MCHC 33.5 g/dl (32.0-36.0); MEAN CELL VOLUME 87.2 fl (80-96); MEAN PLT VOLUME 7.8 fl (7.5-11.1); MONO % 4.6 % (3.8-10.2); PLATELET COUNT 321 10^3/uL (134-434); RBC 4.17 M/mm3 (3.60-5.2); RDW 14.8 % (11.6-15.6); WHITE BLOOD COUNT 4.9 K/mm3 (4.0-10.0)
[2021-03-18 06:32] LABS: INR 1.04 (0.83-1.09); PROTHROMBIN TIME (PATIENT) 12.2 SEC (9.7-13.0)
[2021-03-18 06:34] LABS: ACTIVATED PTT 31.7 SECONDS (25.2-36.5)
[2021-03-18 06:37] LABS: CHLORIDE 105 mmol/L (98-107); SODIUM 140 mmol/L (136-145)
[2021-03-18] MEDS ORDERED: ACETAMINOPHEN INJECTION 100 ML IVPB ONE (06:38)
[2021-03-18 06:39] LABS: CALCIUM 8.4 mg/dL (8.5-10.1); LIPASE 73 U/L (73-393)
[2021-03-18 06:40] LABS: ALBUMIN 3.2 g/dl (3.4-5.0); ANION GAP 8 MMOL/L (8-16); BLOOD UREA NITROGEN 4.6 mg/dL (7-18); CO2 27 mmol/L (21-32); GLUCOSE,RANDOM 89 mg/dL (74-106)
[2021-03-18 06:42] LABS: CREATININE 0.7 mg/dL (0.55-1.3); SGOT/AST 18 U/L (15-37); SGPT/ALT 28 U/L (13-61)
[2021-03-18 06:44] LABS: BILIRUBIN,TOTAL 0.4 mg/dL (0.2-1); TOT PROT 7.4 g/dl (6.4-8.2)
[2021-03-18 06:45] LABS: ALK PHOS 100 U/L (45-117)
[2021-03-18] MEDS ORDERED: MAG HYDROX/AL HYDROX/SIMETH 30 ML UNIT-DOSE CUP PO ONE (07:19)
[2021-03-18] MEDS ORDERED: FAMOTIDINE 20 MG/50 ML IVPB 20 MG/50 ML MG IVPB ONE ×3 (07:19→08:53)
[2021-03-18 08:21] LABS: PH,URINE 6.5 (5.0-8.0); URINE APPEARANCE CLEAR; URINE BILIRUBIN NEGATIVE (NEGATIVE); URINE COLOR YELLOW; URINE GLUCOSE (UA) NEGATIVE (NEGATIVE); URINE KETONE NEGATIVE (NEGATIVE); URINE LEUK ESTERASE NEGATIVE (NEGATIVE); URINE NITRITE NEGATIVE (NEGATIVE); URINE PROTEIN TRACE (NEGATIVE); URINE UROBILINOGEN 0.2 mg/dL (0.2-1.0)
[2021-03-18] MEDS ORDERED: MAG HYDROX/AL HYDROX/SIMETH 30 ML UNIT-DOSE CUP ONE (09:52)
[2021-03-18] MEDS ORDERED: PANTOPRAZOLE SODIUM 40 MG VIAL IVPUSH ONE (10:01)
[2021-03-18] MEDS ORDERED: LIDOCAINE VISCOUS 2% ORAL/TOP 15 ML UNIT-DOSE CUP MM ONE (10:02)
[2021-03-18] MEDS ORDERED: LIDOCAINE VISCOUS 2% ORAL/TOP 15 ML UNIT-DOSE CUP ONE (10:11)
[2021-03-18] MEDS ORDERED: PANTOPRAZOLE SODIUM 40 MG VIAL ONE (10:12)
[2021-03-18 10:41] VITALS: BP 146/68; PULSE 87; TEMP 98.1
== END 2021-03-18 10:41 | disposition home or self-care (01) ==
LOC: JER 04:08
PROC: 3E0333Z Introduction of Anti-inflammatory into Peripheral Vein, Percutaneous Approach (ICD-10-PCS; principal; 2021-03-18)
PROC: 3E033GC Introduction of Other Therapeutic Substance into Peripheral Vein, Percutaneous Approach (ICD-10-PCS; 2021-03-18)
PROC: 3E033NZ Introduction of Analgesics, Hypnotics, Sedatives into Peripheral Vein, Percutaneous Approach (ICD-10-PCS; 2021-03-18)
PROC: 3E033GC Introduction of Other Therapeutic Substance into Peripheral Vein, Percutaneous Approach (ICD-10-PCS; 2021-03-18)
DX: R10.84 Generalized abdominal pain (principal)
CPT/HCPCS: 36415; 74177-TC; 80053; 81003; 83690; 84484; 85025; 85610; 85730; 86850; 86900; 86901; 87086; 93005; 93010; 96374; 96375; 99285-25; J0131; Q9967

== ENCOUNTER 2021-04-25 10:07 | Emergency (ER) | payer OTHER ==
[2021-04-25 10:21] VITALS: BP 130/83; PULSE 84; TEMP 98.1; BMI 29.7
[2021-04-25] MEDS ORDERED: KETOROLAC TROMETHAMINE 30 MG/1 ML VIAL IM ONE (11:40)
[2021-04-25] MEDS ORDERED: KETOROLAC TROMETHAMINE 30 MG/1 ML VIAL ONE (11:42)
== END 2021-04-25 11:59 | disposition home or self-care (01) ==
LOC: JERFT 10:07
PROC: 3E0233Z Introduction of Anti-inflammatory into Muscle, Percutaneous Approach (ICD-10-PCS; principal; 2021-04-25)
DX: S83.91XA Sprain of unspecified site of right knee, initial encounter (principal); G89.29 Other chronic pain; W19.XXXA Unspecified fall, initial encounter; Y92.9 Unspecified place or not applicable
CPT/HCPCS: 73562-TC-RT-FY; 99284-25

== ENCOUNTER 2021-08-01 17:05 | Emergency (ER) | payer OTHER ==
[2021-08-01 17:16] VITALS: BP 126/88; PULSE 75; TEMP 97.9; BMI 33.2
[2021-08-01] MEDS ORDERED: SODIUM CHLORIDE 1,000 ML IV STA (17:37)
[2021-08-01] MEDS ORDERED: ONDANSETRON 4 MG/2 ML VIAL IVPUSH ONE (17:41)
[2021-08-01] MEDS ORDERED: ONDANSETRON 4 MG/2 ML VIAL ONE (17:49)
[2021-08-01] MEDS ORDERED: morphine CARPU-JECT 4 MG/1 ML DISP.SYRIN IVPUSH ONE (18:02)
[2021-08-01] MEDS ORDERED: morphine SULFATE 4 MG/ML VIAL ONE (18:28)
[2021-08-01 19:15] LABS: BASO % 0.4 % (0-2.0); HEMATOCRIT 35.7 % (32.4-45.2); HEMOGLOBIN 11.7 GM/dL (10.7-15.3); LYMPH % 22.2 % (8-40); MCH 29.5 pg (25.7-33.7); MCHC 32.9 g/dl (32.0-36.0); MEAN CELL VOLUME 89.8 fl (80-96); MEAN PLT VOLUME 7.7 fl (7.5-11.1); MONO % 5.6 % (3.8-10.2); NEUT % 70.8 % (42.8-82.8); PLATELET COUNT 297 10^3/uL (134-434); RBC 3.97 M/mm3 (3.60-5.2); RDW 15.6 % (11.6-15.6); WHITE BLOOD COUNT 5.7 K/mm3 (4.0-10.0)
[2021-08-01 19:20] LABS: PHOSPHOROUS 3.6 mg/dL (2.5-4.9)
[2021-08-01 19:26] LABS: ALBUMIN 4.1 g/dl (3.4-5.0); BLOOD UREA NITROGEN 16.9 mg/dL (7-18); CALCIUM 9.1 mg/dL (8.5-10.1)
[2021-08-01 19:26] LABS: EPI CELLS >36 /uL (0-25.1); HYALINE CASTS 2 /uL (0-3.1); PH,URINE 6.5 (5.0-8.0); URINE APPEARANCE CLOUDY; URINE BACTERIA 2358 /uL (0-1359); URINE BILIRUBIN NEGATIVE (NEGATIVE); URINE COLOR YELLOW; URINE GLUCOSE (UA) NEGATIVE (NEGATIVE); URINE KETONE TRACE (NEGATIVE); URINE LEUK ESTERASE TRACE (NEGATIVE); URINE NITRITE NEGATIVE (NEGATIVE); URINE PROTEIN 2+ (NEGATIVE); URINE RBC 9 /uL (0-23.9); URINE UROBILINOGEN 0.2 mg/dL (0.2-1.0); URINE WBC 127 /uL (0-25.8)
[2021-08-01 19:29] LABS: CREATININE 0.9 mg/dL (0.55-1.3)
[2021-08-01 19:30] LABS: TOT PROT 8.1 g/dl (6.4-8.2)
[2021-08-01 19:31] LABS: BILIRUBIN,TOTAL 0.4 mg/dL (0.2-1)
[2021-08-01] MEDS ORDERED: KETOROLAC TROMETHAMINE 30 MG/1 ML VIAL IVPUSH ONE (22:28)
[2021-08-01] MEDS ORDERED: KETOROLAC TROMETHAMINE 30 MG/1 ML VIAL ONE (22:32)
[2021-08-01] MEDS ORDERED: SULFAMETHOXAZOLE/TRIMETHOPRIM 800MG/160MG D.S. TABLET PO ONE (22:42)
[2021-08-01] MEDS ORDERED: SULFAMETHOXAZOLE/TRIMETHOPRIM 800MG/160MG D.S. TABLET ONE (22:46)
== END 2021-08-01 22:55 | disposition home or self-care (01) ==
LOC: JER 17:05
PROC: 3E0333Z Introduction of Anti-inflammatory into Peripheral Vein, Percutaneous Approach (ICD-10-PCS; principal; 2021-08-01)
PROC: 3E033NZ Introduction of Analgesics, Hypnotics, Sedatives into Peripheral Vein, Percutaneous Approach (ICD-10-PCS; 2021-08-01)
PROC: 3E033GC Introduction of Other Therapeutic Substance into Peripheral Vein, Percutaneous Approach (ICD-10-PCS; 2021-08-01)
PROC: 3E0337Z Introduction of Electrolytic and Water Balance Substance into Peripheral Vein, Percutaneous Approach (ICD-10-PCS; 2021-08-01)
DX: N30.00 Acute cystitis without hematuria (principal)
CPT/HCPCS: 36415; 74177-TC; 76705-TC; 80053; 81003; 82150; 83690; 83735; 84100; 85025; 93005; 93010; 99285-25

== ENCOUNTER 2021-10-01 04:29 | Day surgery (SDC) | payer OTHER ==
[2021-09-30 08:23] VITALS: BMI 31.6
[2021-10-01] MEDS ORDERED: LIDOCAINE 1% P/F 10 MG/ML VIAL INF ONE ×2 (10:28)
[2021-10-01 15:18] VITALS: BP 141/97; PULSE 89; TEMP 98.2
== END 2021-10-01 11:30 | disposition home or self-care (01) ==
LOC: JASU-SURG 04:29
PROVIDERS: ATTEND Pain Medicine Pain Medicine
PROC: 01HY3MZ Insertion of Neurostimulator Lead into Peripheral Nerve, Percutaneous Approach (ICD-10-PCS; principal; 2021-10-01 10:00)
DX: G89.4 Chronic pain syndrome (principal); M25.561 Pain in right knee
CPT/HCPCS: 64555; C1778

== ENCOUNTER 2021-12-11 07:53 | Inpatient (IN) | payer OTHER ==
[2021-12-11] MEDS ORDERED: DEXTROSE 5%-0.45% SALINE 1,000 ML IV SCH (10:00)
[2021-12-11 10:02] LABS: BASO % 0.5 % (0-2.0); EOS % 0.4 % (0-4.5); HEMATOCRIT 35.3 % (32.4-45.2); HEMOGLOBIN 11.5 GM/dL (10.7-15.3); LYMPH % 13.8 % (8-40); MCH 29.1 pg (25.7-33.7); MCHC 32.6 g/dl (32.0-36.0); MEAN CELL VOLUME 89.2 fl (80-96); MEAN PLT VOLUME 8.2 fl (7.5-11.1); MONO % 5.9 % (3.8-10.2); NEUT % 79.4 % (42.8-82.8); PLATELET COUNT 268 10^3/uL (134-434); RBC 3.96 M/mm3 (3.60-5.2); RDW 13.6 % (11.6-15.6)
[2021-12-11 10:17] LABS: URINE APPEARANCE CLEAR; URINE BILIRUBIN NEGATIVE (NEGATIVE); URINE COLOR YELLOW; URINE GLUCOSE (UA) NEGATIVE (NEGATIVE); URINE KETONE NEGATIVE (NEGATIVE); URINE LEUK ESTERASE NEGATIVE (NEGATIVE); URINE NITRITE NEGATIVE (NEGATIVE); URINE PROTEIN NEGATIVE (NEGATIVE); URINE UROBILINOGEN 0.2 mg/dL (0.2-1.0)
[2021-12-11 10:26] LABS: ALBUMIN 3.2 g/dl (3.4-5.0)
[2021-12-11 10:27] LABS: BLOOD UREA NITROGEN 7.4 mg/dL (7-18); CALCIUM 8.3 mg/dL (8.5-10.1); MAGNESIUM 1.5 mg/dL (1.8-2.4)
[2021-12-11 10:29] LABS: CREATININE 0.7 mg/dL (0.55-1.3)
[2021-12-11 10:30] LABS: TOT PROT 7.1 g/dl (6.4-8.2)
[2021-12-11] MEDS ORDERED: MAGNESIUM SULF 50% (8.12 MEQ/2 ML-1 GM VIAL) IVPB ONE (10:33)
[2021-12-11] MEDS ORDERED: MAGNESIUM SULFATE IN WATER 2 GM/50 ML IVPB IVPB ONE (10:36)
[2021-12-11 10:37] LABS: BILIRUBIN,TOTAL 0.8 mg/dL (0.2-1)
[2021-12-11] MEDS: DEXTROSE 5%-0.45% SALINE 1,000 ML IV SCH ×2 (10:56→22:31)
[2021-12-11 15:23] VITALS: BMI 24.5
[2021-12-11] MEDS ORDERED: ACETAMINOPHEN 325 MG TABLET (FP) PO PRN (16:05)
[2021-12-11] MEDS ORDERED: KETOROLAC TROMETHAMINE 30 MG/1 ML VIAL IVPUSH PRN (16:05)
[2021-12-11] MEDS ORDERED: morphine SULFATE 4 MG/ML VIAL IVPUSH PRN (16:05)
[2021-12-11] MEDS ORDERED: methaDONE HCL 10 MG TABLET PO ONE (16:07)
[2021-12-11] MEDS ORDERED: ZOLPIDEM TARTRATE 5 MG TABLET PO PRN (16:07)
[2021-12-11] MEDS ORDERED: ONDANSETRON 4 MG/2 ML VIAL IVPB PRN (17:41)
[2021-12-11] MEDS: METOCLOPRAMIDE HCL INJECTION 10 MG/2 ML VIAL IVPB SCH (18:16)
[2021-12-11] MEDS ORDERED: clonazePAM 0.5 MG TABLET PO SCH (22:00)
[2021-12-11] MEDS: LITHIUM CARBONATE 300 MG CAPSULE PO SCH (22:24)
[2021-12-11] MEDS: clonazePAM 0.5 MG TABLET PO SCH ×2 (22:24→22:25)
[2021-12-11] MEDS: QUEtiapine FUMARATE 200 MG TABLET PO SCH (22:24)
[2021-12-11] MEDS: GABAPENTIN 300 MG CAPSULE PO SCH (22:25)
[2021-12-12] MEDS: METOCLOPRAMIDE HCL INJECTION 10 MG/2 ML VIAL IVPB SCH ×3 (02:13→16:46)
[2021-12-12] MEDS: GABAPENTIN 300 MG CAPSULE PO SCH ×3 (06:38→21:55)
[2021-12-12] MEDS: LEVOTHYROXINE NA 75 MCG TABLET (FP) PO SCH (06:39)
[2021-12-12 10:23] LABS: HEMATOCRIT 32.3 % (32.4-45.2); MCH 30.4 pg (25.7-33.7); MCHC 34.1 g/dl (32.0-36.0); MEAN CELL VOLUME 89.1 fl (80-96); MEAN PLT VOLUME 7.6 fl (7.5-11.1); PLATELET COUNT 230 10^3/uL (134-434); RBC 3.62 M/mm3 (3.60-5.2); RDW 13.7 % (11.6-15.6); WHITE BLOOD COUNT 4.5 K/mm3 (4.0-10.0)
[2021-12-12 10:44] LABS: ALBUMIN 2.7 g/dl (3.4-5.0)
[2021-12-12 10:45] LABS: CALCIUM 8.4 mg/dL (8.5-10.1)
[2021-12-12 10:47] LABS: CREATININE 0.6 mg/dL (0.55-1.3)
[2021-12-12 10:50] LABS: BILIRUBIN,TOTAL 0.3 mg/dL (0.2-1)
[2021-12-12] MEDS: methaDONE HCL 10 MG TABLET PO SCH (11:01)
[2021-12-12] MEDS: METOPROLOL TARTRATE 25 MG TABLET (FP) PO SCH (11:03)
[2021-12-12] MEDS: LITHIUM CARBONATE 300 MG CAPSULE PO SCH ×2 (11:03→21:55)
[2021-12-12] MEDS: PANTOPRAZOLE SODIUM 40 MG VIAL IVPUSH SCH (11:03)
[2021-12-12] MEDS: ARIPiprazole 5 MG TABLET PO SCH (11:03)
[2021-12-12] MEDS: DEXTROSE 5%-0.45% SALINE 1,000 ML IV SCH ×3 (11:06→20:29)
[2021-12-12] MEDS: clonazePAM 0.5 MG TABLET PO SCH (21:55)
[2021-12-12] MEDS: QUEtiapine FUMARATE 200 MG TABLET PO SCH (22:38)
[2021-12-13] MEDS: METOCLOPRAMIDE HCL INJECTION 10 MG/2 ML VIAL IVPB SCH ×2 (02:14→09:56)
[2021-12-13] MEDS: DEXTROSE 5%-0.45% SALINE 1,000 ML IV SCH ×2 (02:53→06:00)
[2021-12-13] MEDS: GABAPENTIN 300 MG CAPSULE PO SCH (06:00)
[2021-12-13] MEDS: methaDONE HCL 10 MG TABLET PO SCH (06:00)
[2021-12-13] MEDS: LEVOTHYROXINE NA 75 MCG TABLET (FP) PO SCH (06:01)
[2021-12-13] MEDS: ARIPiprazole 5 MG TABLET PO SCH (09:56)
[2021-12-13] MEDS: PANTOPRAZOLE SODIUM 40 MG VIAL IVPUSH SCH (09:56)
[2021-12-13] MEDS: METOPROLOL TARTRATE 25 MG TABLET (FP) PO SCH (09:56)
[2021-12-13] MEDS: LITHIUM CARBONATE 300 MG CAPSULE PO SCH (09:56)
[2021-12-13] MEDS ORDERED: LORazepam 2 MG/ML SDV VIAL IVPUSH ONE (10:07)
[2021-12-13] MEDS ORDERED: ASPIRIN 325 MG TABLET PO ONE (10:16)
[2021-12-13] MEDS ORDERED: morphine SULFATE 4 MG/ML VIAL IVPUSH ONE (10:16)
[2021-12-13 11:51] VITALS: BP 102/61; PULSE 55; RESP 16; TEMP 98
[2021-12-13] MEDS ORDERED: LIPASE/PROTEASE/AMYLASE 36,000 UNIT CAPSULE PO SCH (12:00)
[2021-12-13] MEDS ORDERED: metroNIDAZOLE 250 MG TABLET PO SCH (14:00)
== END 2021-12-13 12:11 | disposition expired ==
LOC: JER 07:53 → JERBED 12:11 → J8W 13:54 → JICU 12-13 11:21
PROVIDERS: ADMIT Family Medicine; ATTEND Family Medicine
PROC: 5A1935Z Respiratory Ventilation, Less than 24 Consecutive Hours (ICD-10-PCS; principal; 2021-12-13)
PROC: 0BH17EZ Insertion of Endotracheal Airway into Trachea, Via Natural or Artificial Opening (ICD-10-PCS; 2021-12-13)
PROC: 05HN33Z Insertion of Infusion Device into Left Internal Jugular Vein, Percutaneous Approach (ICD-10-PCS; 2021-12-13)
PROC: B544ZZA Ultrasonography of Left Jugular Veins, Guidance (ICD-10-PCS; 2021-12-13)
PROC: 4A133B1 Monitoring of Arterial Pressure, Peripheral, Percutaneous Approach (ICD-10-PCS; 2021-12-13)
PROC: 4A133J1 Monitoring of Arterial Pulse, Peripheral, Percutaneous Approach (ICD-10-PCS; 2021-12-13)
PROC: 5A12012 Performance of Cardiac Output, Single, Manual (ICD-10-PCS; 2021-12-13)
DX: K83.8 Other specified diseases of biliary tract (principal); J96.90 Respiratory failure, unspecified, unspecified whether with hypoxia or hypercapnia; E83.42 Hypomagnesemia; E87.5 Hyperkalemia; F11.20 Opioid dependence, uncomplicated; F31.9 Bipolar disorder, unspecified; I10 Essential (primary) hypertension; K58.9 Irritable bowel syndrome, unspecified; R11.2 Nausea with vomiting, unspecified
CPT/HCPCS: 36415; 71045-TC-FY; 80053; 80061; 81003; 82150; 82962; 83036; 83690; 83735; 85025; 85027; 87086; 93005; 93010; 94002; 99285-25; C9803-CS; U0003; U0005